=== PATIENT | female | born 1950 | race Caucasian/White ===

== ENCOUNTER 2016-05-25 15:32 | Inpatient (IN) | payer MEDICARE, MEDICAID ==
[2016-05-25] VITALS (27 sets, daily range): BP systolic 99–132; RESP 16–24; TEMP 96.3
[~2016-05-25] VITALS: Ht 170.2 cm; Wt 91.3 kg
[2016-05-25] MEDS ORDERED: NOREPINEPHRINE 1 MG/ML 4 ML VIAL IV ONE (18:43)
[2016-05-25] MEDS ORDERED: PROPOFOL 100 ML 100 ML IV ONE (18:48)
[2016-05-25] MEDS ORDERED: FENTANYL 100 MCG/2 ML AMP ONE (18:49)
[2016-05-25] MEDS ORDERED: FILL PIGGYBACK IV SCH (19:30)
[2016-05-25] MEDS ORDERED: DOPAMINE IV SCH (19:30)
[2016-05-25] MEDS ORDERED: NEB-ALBUTEROL 2.5 MG/3 ML INH ONE (19:33)
[2016-05-25] MEDS ORDERED: SOD BICARB 8.4% SYR 50 ML ONE (19:34)
[2016-05-25] MEDS ORDERED: CALCIUM GLUCONATE 2,000 MG in SODIUM CHLORIDE 0.9% 100 ML IV ONE (19:35)
[2016-05-25] MEDS ORDERED: SOD BICARB 8.4% SYR 50 ML IV ONE (19:35)
[2016-05-25] MEDS ORDERED: humuLIN REG INSULIN ONE (19:36)
[2016-05-25] MEDS ORDERED: humuLIN REG INSULIN IV PUSH ONE (19:40)
[2016-05-25] MEDS ORDERED: KAYEXOLATE 15 GM/60 ML BTL PO ONE (20:25)
[2016-05-25] MEDS ORDERED: MISSING DOSE XX ONE ×2 (20:45)
[2016-05-25] MEDS ORDERED: PHARMACY TO DOSE VANCOMYCIN IV SCH (20:45)
[2016-05-25] MEDS ORDERED: PHARMACY TO DOSE ZOSYN IV SCH (20:45)
[2016-05-25] MEDS ORDERED: NEB-ALBUTEROL 2.5 MG/3 ML INH PRN (20:55)
[2016-05-25] MEDS ORDERED: VANCOMYCIN 2,000 MG in SODIUM CHLORIDE 0.9% 500 ML IV ONE (21:20)
[2016-05-25] MEDS: ALBUMIN HUMAN 25GM (25%) 100 ML IV SCH ×2 (21:36→22:45)
[2016-05-25] MEDS: DUONEB INH SCH (22:09)
[2016-05-25] MEDS ORDERED: PHARMACY TO DOSE MERREM XX SCH (22:20)
[2016-05-25] MEDS: DOBUTamine PREMIX 250 ML IV PRN (22:26)
[2016-05-25] MEDS ORDERED: Meropenem 500 MG in SODIUM CHLORIDE 0.9% 100 ML IV ONE (22:30)
[2016-05-25] MEDS ORDERED: **NOTE TO NURSE XX SCH (22:41)
[2016-05-26] VITALS (110 sets, daily range): BP systolic 70–141; RESP 15–28; TEMP 97.4–100.1; Ht 170.2 cm; Wt 91.3 kg
[2016-05-26] MEDS: DUONEB INH SCH ×6 (02:20→22:22)
[2016-05-26] MEDS: NOREPINEPHRINE 16 MG in DEXTROSE 5% 234 ML IV SCH ×2 (03:24→16:41)
[2016-05-26] MEDS ORDERED: SODIUM CHLORIDE 0.9% 1,000 ML IV ONE (03:40)
[2016-05-26] MEDS: PROPOFOL 100 ML 100 ML IV PRN ×2 (06:07→21:37)
[2016-05-26] MEDS: ALBUMIN HUMAN 25GM (25%) 100 ML IV SCH ×6 (06:23→22:14)
[2016-05-26] MEDS: NEB-BUDESONIDE 0.5 MG INH SCH ×2 (06:33→18:39)
[2016-05-26] MEDS: NEB-BROVANA 15 MCG/2 ML INH SCH ×2 (06:34→18:39)
[2016-05-26] MEDS: DOBUTamine PREMIX 250 ML IV PRN ×4 (07:05→20:57)
[2016-05-26] MEDS ORDERED: CALCIUM GLUCONATE 1,000 MG in SODIUM CHLORIDE 0.9% 100 ML IV ONE (07:25)
[2016-05-26] MEDS: [UNRECOGNIZED DRUG - OTHER] XX SCH ×2 (07:30→20:00)
[2016-05-26] MEDS ORDERED: DEXTROSE 50% SYRINGE 50 ML IV PRN (08:40)
[2016-05-26] MEDS: FAMOTIDINE 20 MG INJ IV SCH ×2 (09:34→20:55)
[2016-05-26] MEDS: SOLU-CORTEF 100 MG/2 ML IV SCH ×3 (12:34→23:10)
[2016-05-26] MEDS ORDERED: ALBUMIN HUMAN 25GM (25%) 100 ML IV PRN (13:15)
[2016-05-26] MEDS ORDERED: SODIUM CHLORIDE 0.9% 1,000 ML IV SCH (13:15)
[2016-05-26] MEDS ORDERED: SODIUM CHLORIDE 0.9% 1,000 ML IV PRN (13:15)
[2016-05-26] MEDS: DEXTROSE 5% IV SCH ×2 (13:50→23:09)
[2016-05-26] MEDS: BUMETANIDE IV SCH ×2 (13:50→23:09)
[2016-05-26] MEDS ORDERED: MISSING DOSE XX ONE ×2 (17:35→20:30)
[2016-05-26] MEDS: Meropenem 500 MG in SODIUM CHLORIDE 0.9% 100 ML IV SCH (20:55)
[2016-05-26] MEDS: VASOPRESSIN 40 UNITS in SODIUM CHLORIDE 0.9% 38 ML IV SCH (20:56)
[2016-05-26] MEDS: MICONAZOLE 2% PWD TOPICAL SCH (21:31)
[2016-05-27] VITALS (49 sets, daily range): BP systolic 102–147; RESP 20–30; TEMP 98.4–100.4
[2016-05-27] MEDS ORDERED: MISSING DOSE XX ONE ×4 (00:05→20:45)
[2016-05-27] MEDS: DOBUTamine PREMIX 250 ML IV PRN ×3 (00:19→10:19)
[2016-05-27] MEDS: INSULIN DRIP 1 UNIT/ML 100 ML IV SCH ×2 (00:20→09:38)
[2016-05-27] MEDS: DUONEB INH SCH ×6 (02:55→23:14)
[2016-05-27] MEDS: ALBUMIN HUMAN 25GM (25%) 100 ML IV SCH ×6 (04:17→20:44)
[2016-05-27] MEDS: PROPOFOL 100 ML 100 ML IV PRN ×4 (04:31→20:43)
[2016-05-27] MEDS: SODIUM CHLORIDE 0.9% FLUSH BAG 500 ML IV SCH (05:50)
[2016-05-27] MEDS: NEB-BUDESONIDE 0.5 MG INH SCH ×2 (06:07→17:06)
[2016-05-27] MEDS: NEB-BROVANA 15 MCG/2 ML INH SCH ×2 (06:07→17:06)
[2016-05-27] MEDS ORDERED: CALCIUM GLUCONATE 1,000 MG in SODIUM CHLORIDE 0.9% 100 ML IV ONE (07:45)
[2016-05-27] MEDS: [UNRECOGNIZED DRUG - OTHER] XX SCH ×2 (08:00→20:00)
[2016-05-27] MEDS: VASOPRESSIN 40 UNITS in SODIUM CHLORIDE 0.9% 38 ML IV SCH (08:06)
[2016-05-27] MEDS: MICONAZOLE 2% PWD TOPICAL SCH ×2 (08:45→20:42)
[2016-05-27] MEDS: DEXTROSE 5% IV SCH ×2 (10:00→21:14)
[2016-05-27] MEDS: BUMETANIDE IV SCH ×2 (10:00→21:14)
[2016-05-27] MEDS: FAMOTIDINE 20 MG INJ IV SCH ×2 (11:09→20:40)
[2016-05-27] MEDS: SOLU-CORTEF 100 MG/2 ML IV SCH ×2 (11:37→16:09)
[2016-05-27] MEDS ORDERED: VANCOMYCIN 1,000 MG in SODIUM CHLORIDE 0.9% 250 ML IV ONE (12:00)
[2016-05-27] MEDS: Meropenem 500 MG in SODIUM CHLORIDE 0.9% 100 ML IV SCH (20:45)
[2016-05-28] VITALS (42 sets, daily range): BP systolic 93–149; RESP 20–31; TEMP 97.4–99.7
[2016-05-28] MEDS: PROPOFOL 100 ML 100 ML IV PRN ×6 (00:03→22:02)
[2016-05-28] MEDS: SOLU-CORTEF 100 MG/2 ML IV SCH ×3 (00:15→16:27)
[2016-05-28] MEDS: DOBUTamine PREMIX 250 ML IV PRN (01:30)
[2016-05-28] MEDS: DUONEB INH SCH ×6 (02:18→22:18)
[2016-05-28] MEDS: ALBUMIN HUMAN 25GM (25%) 100 ML IV SCH ×6 (05:25→20:40)
[2016-05-28] MEDS: SODIUM CHLORIDE 0.9% FLUSH BAG 500 ML IV SCH (06:00)
[2016-05-28] MEDS: NEB-BROVANA 15 MCG/2 ML INH SCH ×2 (07:00→18:05)
[2016-05-28] MEDS: NEB-BUDESONIDE 0.5 MG INH SCH ×2 (07:00→18:05)
[2016-05-28] MEDS: [UNRECOGNIZED DRUG - OTHER] XX SCH ×2 (08:00→19:17)
[2016-05-28] MEDS: FAMOTIDINE 20 MG INJ IV SCH ×2 (08:04→20:39)
[2016-05-28] MEDS: MICONAZOLE 2% PWD TOPICAL SCH ×2 (08:06→20:40)
[2016-05-28] MEDS ORDERED: MISSING DOSE XX ONE ×3 (08:15→21:40)
[2016-05-28] MEDS: DEXTROSE 5% IV SCH ×3 (08:29→21:58)
[2016-05-28] MEDS: BUMETANIDE IV SCH ×3 (08:29→21:58)
[2016-05-28] MEDS ORDERED: VANCOMYCIN 1,000 MG in SODIUM CHLORIDE 0.9% 250 ML IV ONE (09:00)
[2016-05-28] MEDS ORDERED: GLUCAGON 1 MG VIAL IM PRN (09:45)
[2016-05-28] MEDS ORDERED: DEXTROSE 50% SYRINGE 50 ML IV PRN (09:45)
[2016-05-28] MEDS: METOLAZONE 5 MG TAB NG SCH (14:07)
[2016-05-29] VITALS (33 sets, daily range): BP systolic 100–144; RESP 19–32; TEMP 97.9–99.2
[2016-05-29] MEDS: SOLU-CORTEF 100 MG/2 ML IV SCH ×3 (00:43→20:43)
[2016-05-29] MEDS: DUONEB INH SCH ×6 (02:34→22:49)
[2016-05-29] MEDS: PROPOFOL 100 ML 100 ML IV PRN ×4 (02:46→18:14)
[2016-05-29] MEDS: BUMETANIDE IV SCH ×4 (03:34→21:08)
[2016-05-29] MEDS: DEXTROSE 5% IV SCH ×4 (03:34→21:08)
[2016-05-29] MEDS: ALBUMIN HUMAN 25GM (25%) 100 ML IV SCH ×4 (05:17→20:52)
[2016-05-29] MEDS: SODIUM CHLORIDE 0.9% FLUSH BAG 500 ML IV SCH (05:57)
[2016-05-29] MEDS: NEB-BROVANA 15 MCG/2 ML INH SCH ×2 (06:39→18:29)
[2016-05-29] MEDS: NEB-BUDESONIDE 0.5 MG INH SCH ×2 (06:39→18:29)
[2016-05-29] MEDS: [UNRECOGNIZED DRUG - OTHER] XX SCH ×2 (08:00→20:52)
[2016-05-29] MEDS: METOLAZONE 5 MG TAB NG SCH (08:53)
[2016-05-29] MEDS: FAMOTIDINE 20 MG INJ IV SCH ×2 (08:54→20:53)
[2016-05-29] MEDS ORDERED: LEVEMIR INSULIN SUBQ SCH (09:00)
[2016-05-29] MEDS: MICONAZOLE 2% PWD TOPICAL SCH ×2 (09:01→21:08)
[2016-05-29] MEDS ORDERED: MISSING DOSE XX ONE ×3 (09:05→20:55)
[2016-05-29] MEDS: VANCOMYCIN 1,000 MG in SODIUM CHLORIDE 0.9% 250 ML IV SCH (11:15)
[2016-05-29] MEDS: LEVEMIR INSULIN SUBQ SCH (21:22)
[2016-05-30] VITALS (36 sets, daily range): BP systolic 94–143; RESP 20–35; TEMP 97.6–99
[2016-05-30] MEDS ORDERED: MISSING DOSE XX ONE ×4 (01:10→12:10)
[2016-05-30] MEDS: BUMETANIDE IV SCH ×2 (01:56→07:10)
[2016-05-30] MEDS: DEXTROSE 5% IV SCH ×2 (01:56→07:10)
[2016-05-30] MEDS: DUONEB INH SCH ×6 (02:27→22:44)
[2016-05-30] MEDS: ALBUMIN HUMAN 25GM (25%) 100 ML IV SCH (05:00)
[2016-05-30] MEDS: SODIUM CHLORIDE 0.9% FLUSH BAG 500 ML IV SCH (05:33)
[2016-05-30] MEDS: NEB-BUDESONIDE 0.5 MG INH SCH ×2 (06:07→17:11)
[2016-05-30] MEDS: NEB-BROVANA 15 MCG/2 ML INH SCH ×2 (06:07→17:11)
[2016-05-30] MEDS: [UNRECOGNIZED DRUG - OTHER] XX SCH ×2 (07:15→20:00)
[2016-05-30] MEDS: FAMOTIDINE 20 MG INJ IV SCH ×2 (08:17→19:48)
[2016-05-30] MEDS: SOLU-CORTEF 100 MG/2 ML IV SCH (08:18)
[2016-05-30] MEDS: LEVEMIR INSULIN SUBQ SCH ×2 (08:23→21:18)
[2016-05-30] MEDS: METOLAZONE 5 MG TAB NG SCH (10:36)
[2016-05-30] MEDS: MICONAZOLE 2% PWD TOPICAL SCH ×2 (10:37→21:18)
[2016-05-30] MEDS: VANCOMYCIN 1,000 MG in SODIUM CHLORIDE 0.9% 250 ML IV SCH (10:37)
[2016-05-30] MEDS: POTASSIUM CHLORIDE PREMIX 50 ML IV SCH ×4 (10:38→15:51)
[2016-05-30] MEDS: BUMETANIDE 2.5 MG/10 ML VIAL IV SCH ×2 (17:49→22:00)
[2016-05-30] MEDS ORDERED: BUMETANIDE 1 MG/4 ML VIAL IV SCH (18:00)
[2016-05-31] VITALS (26 sets, daily range): BP systolic 110–147; RESP 12–29; TEMP 98.2–99
[2016-05-31] MEDS: DUONEB INH SCH ×7 (02:12→22:35)
[2016-05-31] MEDS: BUMETANIDE 2.5 MG/10 ML VIAL IV SCH ×6 (02:29→21:37)
[2016-05-31] MEDS: NEB-BROVANA 15 MCG/2 ML INH SCH ×2 (05:16→19:12)
[2016-05-31] MEDS: NEB-BUDESONIDE 0.5 MG INH SCH ×2 (05:17→19:12)
[2016-05-31] MEDS: SODIUM CHLORIDE 0.9% FLUSH BAG 500 ML IV SCH (06:16)
[2016-05-31] MEDS: [UNRECOGNIZED DRUG - OTHER] XX SCH ×2 (07:12→20:28)
[2016-05-31] MEDS: LEVEMIR INSULIN SUBQ SCH ×2 (07:13→20:36)
[2016-05-31] MEDS: FAMOTIDINE 20 MG INJ IV SCH ×2 (09:00→20:28)
[2016-05-31] MEDS: POTASSIUM CHLORIDE PREMIX 50 ML IV SCH ×4 (09:00→14:59)
[2016-05-31] MEDS: MICONAZOLE 2% PWD TOPICAL SCH ×2 (09:01→20:28)
[2016-05-31] MEDS: METOLAZONE 5 MG TAB NG SCH (09:01)
[2016-05-31] MEDS: VANCOMYCIN 1,000 MG in SODIUM CHLORIDE 0.9% 250 ML IV SCH (11:25)
[2016-05-31] MEDS ORDERED: DOCUSATE SOD 100 MG CAP PO ONE (11:26)
[2016-05-31] MEDS ORDERED: BISACODYL 10 MG SUPP RECTAL PRN (11:30)
[2016-05-31] MEDS ORDERED: FLEET ENEMA 132 ML BTL RECTAL PRN (11:30)
[2016-05-31] MEDS: MAGNESIUM SULF 1 GM/100 ML 100 ML IV SCH ×2 (13:54→15:00)
[2016-05-31] MEDS: DOCUSATE SOD 100 MG CAP PO SCH (20:28)
[2016-06-01] VITALS (24 sets, daily range): BP systolic 99–150; RESP 13–30; TEMP 97.6–100
[2016-06-01] MEDS: BUMETANIDE 2.5 MG/10 ML VIAL IV SCH ×4 (02:08→16:05)
[2016-06-01] MEDS: DUONEB INH SCH ×6 (03:01→22:27)
[2016-06-01] MEDS: SODIUM CHLORIDE 0.9% FLUSH BAG 500 ML IV SCH (05:52)
[2016-06-01] MEDS: NEB-BUDESONIDE 0.5 MG INH SCH (06:00)
[2016-06-01] MEDS: NEB-BROVANA 15 MCG/2 ML INH SCH ×2 (06:00→18:24)
[2016-06-01] MEDS: DOCUSATE SOD 100 MG CAP PO SCH ×2 (07:59→19:58)
[2016-06-01] MEDS: METOLAZONE 5 MG TAB NG SCH (07:59)
[2016-06-01] MEDS: [UNRECOGNIZED DRUG - OTHER] XX SCH ×2 (08:00→19:58)
[2016-06-01] MEDS: FAMOTIDINE 20 MG INJ IV SCH ×2 (08:17→19:57)
[2016-06-01] MEDS: LEVEMIR INSULIN SUBQ SCH ×2 (08:18→20:01)
[2016-06-01] MEDS ORDERED: MAGNESIUM SULF 1 GM/100 ML 100 ML IV ONE (08:35)
[2016-06-01] MEDS: POTASSIUM CHLORIDE PREMIX 50 ML IV SCH ×4 (09:09→23:35)
[2016-06-01] MEDS: MICONAZOLE 2% PWD TOPICAL SCH ×2 (09:10→19:58)
[2016-06-01] MEDS: VANCOMYCIN 1,000 MG in SODIUM CHLORIDE 0.9% 250 ML IV SCH (10:25)
[2016-06-01] MEDS: ONDANSETRON 4 MG VIAL IV PRN (20:07)
[2016-06-02] VITALS (15 sets, daily range): BP systolic 113–139; RESP 18–28; TEMP 97.5–98.6
[2016-06-02] MEDS: BUMETANIDE 2.5 MG/10 ML VIAL IV SCH ×3 (00:01→16:05)
[2016-06-02] MEDS: POTASSIUM CHLORIDE PREMIX 50 ML IV SCH (00:35)
[2016-06-02] MEDS: DUONEB INH SCH ×6 (02:34→23:40)
[2016-06-02] MEDS: SODIUM CHLORIDE 0.9% FLUSH BAG 500 ML IV SCH (06:02)
[2016-06-02] MEDS: NEB-BROVANA 15 MCG/2 ML INH SCH ×2 (06:47→18:31)
[2016-06-02] MEDS: [UNRECOGNIZED DRUG - OTHER] XX SCH ×2 (08:00→20:00)
[2016-06-02] MEDS: DOCUSATE SOD 100 MG CAP PO SCH (08:35)
[2016-06-02] MEDS: METOLAZONE 5 MG TAB NG SCH (08:35)
[2016-06-02] MEDS: FAMOTIDINE 20 MG INJ IV SCH (08:37)
[2016-06-02] MEDS: LEVEMIR INSULIN SUBQ SCH ×2 (08:47→23:09)
[2016-06-02] MEDS: MICONAZOLE 2% PWD TOPICAL SCH (08:50)
[2016-06-02] MEDS: LEVOTHYROXINE 0.025 MG TAB PO SCH (09:54)
[2016-06-02] MEDS: Carvedilol 3.125 MG TAB PO SCH (22:35)
[2016-06-03] MEDS ORDERED: MISSING DOSE XX ONE ×3 (00:10→08:55)
[2016-06-03] MEDS: FAMOTIDINE 20 MG INJ IV SCH ×3 (01:21→21:49)
[2016-06-03] MEDS: DOCUSATE SOD 100 MG CAP PO SCH ×3 (01:23→21:50)
[2016-06-03] MEDS: MICONAZOLE 2% PWD TOPICAL SCH ×3 (01:24→23:12)
[2016-06-03] MEDS: BUMETANIDE 2.5 MG/10 ML VIAL IV SCH ×3 (01:30→16:42)
[2016-06-03] MEDS: DUONEB INH SCH ×6 (02:36→22:24)
[2016-06-03 03:30] VITALS: BP_SYST 111; RESP 19; TEMP 98.6
[2016-06-03] MEDS: LEVOTHYROXINE 0.025 MG TAB PO SCH (06:17)
[2016-06-03] MEDS: SODIUM CHLORIDE 0.9% FLUSH BAG 500 ML IV SCH (06:17)
[2016-06-03] MEDS: NEB-BROVANA 15 MCG/2 ML INH SCH ×2 (07:18→16:47)
[2016-06-03 07:50] VITALS: BP_SYST 125; RESP 18; TEMP 97.7
[2016-06-03] MEDS: [UNRECOGNIZED DRUG - OTHER] XX SCH ×2 (08:00→20:00)
[2016-06-03] MEDS ORDERED: KCL CR 20 MEQ TAB PO ONE (09:00)
[2016-06-03] MEDS: METOLAZONE 5 MG TAB NG SCH (09:02)
[2016-06-03] MEDS: LEVEMIR INSULIN SUBQ SCH ×2 (09:04→23:13)
[2016-06-03] MEDS: Carvedilol 3.125 MG TAB PO SCH ×2 (09:20→21:51)
[2016-06-03 12:17] VITALS: BP_SYST 125; RESP 18; TEMP 97.3
[2016-06-03 15:37] VITALS: BP_SYST 131; RESP 18; TEMP 97.5
[2016-06-03 19:42] VITALS: BP_SYST 103; RESP 16; TEMP 97.5
[2016-06-04] VITALS (8 sets, daily range): BP systolic 108–148; RESP 16–20; TEMP 97.3–98.6
[2016-06-04] MEDS: BUMETANIDE 2.5 MG/10 ML VIAL IV SCH ×2 (00:26→08:12)
[2016-06-04] MEDS: DUONEB INH SCH ×6 (02:57→23:02)
[2016-06-04] MEDS: NEB-BROVANA 15 MCG/2 ML INH SCH ×2 (05:22→19:18)
[2016-06-04] MEDS: SODIUM CHLORIDE 0.9% FLUSH BAG 500 ML IV SCH (06:00)
[2016-06-04] MEDS: LEVOTHYROXINE 0.025 MG TAB PO SCH (06:33)
[2016-06-04] MEDS: [UNRECOGNIZED DRUG - OTHER] XX SCH ×2 (08:00→20:00)
[2016-06-04] MEDS: FAMOTIDINE 20 MG INJ IV SCH ×2 (08:13→21:24)
[2016-06-04] MEDS: METOLAZONE 5 MG TAB NG SCH (08:15)
[2016-06-04] MEDS: Carvedilol 3.125 MG TAB PO SCH ×2 (08:15→21:26)
[2016-06-04] MEDS: MICONAZOLE 2% PWD TOPICAL SCH (08:16)
[2016-06-04] MEDS: DOCUSATE SOD 100 MG CAP PO SCH ×2 (08:17→21:00)
[2016-06-04] MEDS ORDERED: KCL CR 20 MEQ TAB PO ONE (09:00)
[2016-06-04] MEDS: LEVEMIR INSULIN SUBQ SCH ×2 (09:49→21:29)
[2016-06-04] MEDS: SPIRONOLACTONE 25 MG TAB PO SCH (11:44)
[2016-06-04] MEDS ORDERED: KCL CR 10 MEQ CAP PO ONE (13:00)
[2016-06-04] MEDS: BUMETANIDE 1 MG TAB PO SCH (16:57)
[2016-06-04] MEDS ORDERED: MAGNESIUM SULF 1 GM/100 ML 100 ML IV ONE (18:05)
[2016-06-04] MEDS: DAKIN'S 0.125% 480 ML TOPICAL SCH (18:32)
[2016-06-05] VITALS (9 sets, daily range): BP systolic 100–128; RESP 16–20; TEMP 97.4–98
[2016-06-05] MEDS: MICONAZOLE 2% PWD TOPICAL SCH ×3 (01:11→23:23)
[2016-06-05] MEDS: DUONEB INH SCH ×6 (02:42→23:01)
[2016-06-05] MEDS: DAKIN'S 0.125% 480 ML TOPICAL SCH ×3 (04:22→23:23)
[2016-06-05] MEDS: SODIUM CHLORIDE 0.9% FLUSH BAG 500 ML IV SCH (06:00)
[2016-06-05] MEDS: LEVOTHYROXINE 0.025 MG TAB PO SCH (06:41)
[2016-06-05] MEDS: NEB-BROVANA 15 MCG/2 ML INH SCH ×2 (07:09→18:26)
[2016-06-05] MEDS: [UNRECOGNIZED DRUG - OTHER] XX SCH ×2 (07:59→20:05)
[2016-06-05] MEDS: FAMOTIDINE 20 MG INJ IV SCH ×2 (08:17→23:22)
[2016-06-05] MEDS: DOCUSATE SOD 100 MG CAP PO SCH ×2 (08:21→21:00)
[2016-06-05] MEDS: SPIRONOLACTONE 25 MG TAB PO SCH (08:21)
[2016-06-05] MEDS: BUMETANIDE 1 MG TAB PO SCH ×2 (08:21→17:09)
[2016-06-05] MEDS: Carvedilol 3.125 MG TAB PO SCH ×2 (08:21→23:22)
[2016-06-05] MEDS: LEVEMIR INSULIN SUBQ SCH ×2 (08:22→23:23)
[2016-06-05] MEDS ORDERED: KCL CR 20 MEQ TAB PO ONE (11:20)
[2016-06-05] MEDS: ONDANSETRON 4 MG VIAL IV PRN (23:24)
[2016-06-05] MEDS ORDERED: MISSING DOSE XX ONE (23:25)
[2016-06-05] MEDS: ACETAMINOPHEN 325 MG TAB PO PRN (23:25)
[2016-06-05] MEDS: KCL CR 20 MEQ TAB PO SCH (23:58)
[2016-06-06] VITALS (9 sets, daily range): BP systolic 101–124; RESP 17–20; TEMP 97.3–98
[2016-06-06] MEDS: DUONEB INH SCH ×6 (02:36→22:40)
[2016-06-06] MEDS: SODIUM CHLORIDE 0.9% FLUSH BAG 500 ML IV SCH (06:13)
[2016-06-06] MEDS: LEVOTHYROXINE 0.025 MG TAB PO SCH (06:14)
[2016-06-06] MEDS: NEB-BROVANA 15 MCG/2 ML INH SCH ×2 (07:52→18:19)
[2016-06-06] MEDS: [UNRECOGNIZED DRUG - OTHER] XX SCH ×2 (08:00→19:52)
[2016-06-06] MEDS: KCL CR 20 MEQ TAB PO SCH ×2 (08:26→20:10)
[2016-06-06] MEDS: BUMETANIDE 1 MG TAB PO SCH ×2 (08:26→16:25)
[2016-06-06] MEDS: SPIRONOLACTONE 25 MG TAB PO SCH (08:26)
[2016-06-06] MEDS: Carvedilol 3.125 MG TAB PO SCH ×2 (08:26→20:11)
[2016-06-06] MEDS: DOCUSATE SOD 100 MG CAP PO SCH ×2 (08:26→20:31)
[2016-06-06] MEDS: FAMOTIDINE 20 MG INJ IV SCH ×2 (08:27→20:12)
[2016-06-06] MEDS: LEVEMIR INSULIN SUBQ SCH ×2 (11:51→22:24)
[2016-06-06] MEDS: MICONAZOLE 2% PWD TOPICAL SCH (11:54)
[2016-06-06] MEDS: DAKIN'S 0.125% 480 ML TOPICAL SCH (13:22)
[2016-06-06] MEDS: SITAGLIPTIN 50 MG TAB PO SCH (16:58)
[2016-06-06] MEDS: ACETAMINOPHEN 325 MG TAB PO PRN (20:12)
[2016-06-07] VITALS (12 sets, daily range): BP systolic 101–124; RESP 17–20; TEMP 97.2–98
[2016-06-07] MEDS: MICONAZOLE 2% PWD TOPICAL SCH ×3 (00:52→21:27)
[2016-06-07] MEDS: ONDANSETRON 4 MG VIAL IV PRN (01:33)
[2016-06-07] MEDS: DUONEB INH SCH ×6 (02:44→22:57)
[2016-06-07] MEDS: DAKIN'S 0.125% 480 ML TOPICAL SCH ×3 (03:40→21:27)
[2016-06-07] MEDS: SODIUM CHLORIDE 0.9% FLUSH BAG 500 ML IV SCH (06:00)
[2016-06-07] MEDS ORDERED: MISSING DOSE XX ONE ×2 (06:25→09:20)
[2016-06-07] MEDS: NEB-BROVANA 15 MCG/2 ML INH SCH ×2 (07:29→19:01)
[2016-06-07] MEDS: [UNRECOGNIZED DRUG - OTHER] XX SCH ×2 (08:00→21:26)
[2016-06-07] MEDS: DOCUSATE SOD 100 MG CAP PO SCH ×2 (09:00→21:00)
[2016-06-07] MEDS: LEVOTHYROXINE 0.025 MG TAB PO SCH (09:34)
[2016-06-07] MEDS: BUMETANIDE 1 MG TAB PO SCH (09:35)
[2016-06-07] MEDS: SPIRONOLACTONE 25 MG TAB PO SCH (09:35)
[2016-06-07] MEDS: Carvedilol 3.125 MG TAB PO SCH ×2 (09:36→21:27)
[2016-06-07] MEDS: SITAGLIPTIN 50 MG TAB PO SCH (09:37)
[2016-06-07] MEDS: KCL CR 20 MEQ TAB PO SCH (09:38)
[2016-06-07] MEDS: FAMOTIDINE 20 MG INJ IV SCH ×2 (09:43→21:26)
[2016-06-07] MEDS: LEVEMIR INSULIN SUBQ SCH (21:52)
[2016-06-08] MEDS: DUONEB INH SCH ×4 (02:36→14:32)
[2016-06-08 02:52] VITALS: BP_SYST 111; TEMP 98.1
[2016-06-08 02:53] VITALS: RESP 20
[2016-06-08] MEDS: SODIUM CHLORIDE 0.9% FLUSH BAG 500 ML IV SCH (06:00)
[2016-06-08] MEDS: LEVOTHYROXINE 0.025 MG TAB PO SCH (06:12)
[2016-06-08 07:26] VITALS: BP_SYST 113; RESP 20; TEMP 97.6
[2016-06-08] MEDS: NEB-BROVANA 15 MCG/2 ML INH SCH (07:47)
[2016-06-08] MEDS: [UNRECOGNIZED DRUG - OTHER] XX SCH (08:00)
[2016-06-08] MEDS: Carvedilol 3.125 MG TAB PO SCH (08:23)
[2016-06-08] MEDS: SITAGLIPTIN 50 MG TAB PO SCH (08:24)
[2016-06-08] MEDS: DOCUSATE SOD 100 MG CAP PO SCH (08:24)
[2016-06-08] MEDS: SPIRONOLACTONE 25 MG TAB PO SCH (08:24)
[2016-06-08] MEDS: DAKIN'S 0.125% 480 ML TOPICAL SCH (08:25)
[2016-06-08] MEDS: MICONAZOLE 2% PWD TOPICAL SCH (08:25)
[2016-06-08] MEDS: FAMOTIDINE 20 MG INJ IV SCH (09:16)
[2016-06-08 10:31] VITALS: BP_SYST 117; RESP 18; TEMP 97.6
[2016-06-08 12:59] VITALS: BP_SYST 117; RESP 18; TEMP 97.6
== END 2016-06-08 17:59 | DRG 870 ==
LOC: ENRESERVTM → ENRESERVDT → EMR 15:34 → ENPENDDIS 15:34 → ICU 18:34 → PCU2 06-02 11:13 → 3NT 06-05 19:08
PROVIDERS: ADMIT Internal Medicine; ATTEND Internal Medicine
PROC: 5A1955Z Respiratory Ventilation, Greater than 96 Consecutive Hours (ICD-10-PCS; principal; 2016-05-25)
PROC: 0BH17EZ Insertion of Endotracheal Airway into Trachea, Via Natural or Artificial Opening (ICD-10-PCS; 2016-05-25)
PROC: 05H633Z Insertion of Infusion Device into Left Subclavian Vein, Percutaneous Approach (ICD-10-PCS; 2016-05-25)
PROC: 03HY32Z Insertion of Monitoring Device into Upper Artery, Percutaneous Approach (ICD-10-PCS; 2016-05-25)
PROC: 05HM33Z Insertion of Infusion Device into Right Internal Jugular Vein, Percutaneous Approach (ICD-10-PCS; 2016-05-25)
CPT/HCPCS: 36558; 36600; 36800; 71010; 76604; 80048; 80051; 80053; 80069; 80202; 81001; 82330; 82553; 82570; 82803; 82947; 83605; 83735; 83880; 84100; 84145; 84300; 84484; 85025; 86403; 87040; 87071; 87077; 87088; 87186; 87340; 93005; 94002; 94003; 94640; 94660; 94762; 94799; 99232; 99233; 99239; 99291; 99292

== ENCOUNTER 2016-06-09 04:14 | Emergency (ER) | payer MEDICARE, MEDICAID | END 2016-06-09 07:19 | disposition home or self-care (01) | LOC: ER 04:14 | DX: R06.00 Dyspnea, unspecified (principal); J81.1 Chronic pulmonary edema; Z79.899 Other long term (current) drug therapy | CPT/HCPCS: 71010 ==